=== PATIENT | female | born 1970 ===

== ENCOUNTER 2022-07-15 05:30 | Day surgery (SDC) | payer OTHER ==
[~2022-07-15] VITALS: Ht 152.4 cm; Wt 68.0 kg
[~2022-07-15 05:30] MED LIST: ZESTRIL10 M1 PO
== END 2022-07-15 14:00 | disposition home or self-care (01) ==
LOC: CIR.AMB 05:30
PROVIDERS: ATTEND Obstetrics & Gynecology
DX: N84.0 Polyp of corpus uteri (principal); Z20.822 Contact with and (suspected) exposure to COVID-19; Z88.8 Allergy status to other drugs, medicaments and biological substances; Z86.16 Personal history of COVID-19; E11.9 Type 2 diabetes mellitus without complications

== ENCOUNTER → 2024-12-13 | Day surgery (SDC) | payer OTHER ==
[2024-12-07 10:54] VITALS: BP 120/84
[~2024-12-13] VITALS: Ht 152.4 cm; Wt 72.6 kg
[~2024-12-13] MED LIST changes: +ENALAPRILAT DIHYDRATE 1.25 MG/ML VIAL IV ONE; +MEPERIDINE HCL 25 MG/ML AMPUL IV ONE; +ONDANSETRON HCL 2 MG/ML VIAL IV ONE; +POVIDONE-IODINE 118 ML BOTT TOP ONE; +ZESTRIL40 M1 PO
== END | disposition home or self-care (01) ==
LOC: ADM 12-07 10:00 → CIR.AMB 05:16
PROVIDERS: ATTEND Obstetrics & Gynecology
DX: N84.0 Polyp of corpus uteri (principal); N72 Inflammatory disease of cervix uteri; N95.0 Postmenopausal bleeding; I10 Essential (primary) hypertension; Z88.5 Allergy status to narcotic agent

== ENCOUNTER 2025-01-21 07:45 | Inpatient (IN) | payer OTHER ==
[~2025-01-21] VITALS: Ht 152.4 cm; Wt 71.2 kg
[~2025-01-21 07:45] MED LIST changes: -ENALAPRILAT DIHYDRATE 1.25 MG/ML VIAL IV ONE; -MEPERIDINE HCL 25 MG/ML AMPUL IV ONE; -ONDANSETRON HCL 2 MG/ML VIAL IV ONE; -POVIDONE-IODINE 118 ML BOTT TOP ONE
[2025-01-21 09:17] VITALS: BP 130/90
[2025-01-21 09:59] LABS: URINE APPEARANCE Clear; URINE BILIRRUBIN Negative (NEGATIVE); URINE BLOOD Moderate; URINE COLOR Yellow; URINE GLUCOSE Negative (NEGATIVE); URINE KETONE Negative (NEGATIVE); URINE LEUKOCYTE Negative; URINE NITRATE Negative; URINE PROTEIN Negative (NEGATIVE); URINE UROBILINOGEN 0.2 E.U./dl
[2025-01-21 10:02] LABS: INR 0.97; PARTIAL THROMBOPLASTIN TIME 30.3 SECONDS (22.0-34.0); PROTHROMBIN TIME 10.6 SECONDS (9.0-11.5)
[2025-01-21 10:04] LABS: URINE BACTERIA 385.5 uL (0.0-1933); URINE RBC 38.2 uL (0.0-20.8); URINE WBC 11.2 uL (0.0-23.2)
[2025-01-21 10:10] LABS: HEMATOCRIT 43.5 % (36.0-45.00); HEMOGLOBIN 14.4 g/dL (12.0-15.00); MEAN CELL VOLUME 92.9 fL (80.00-100.00); MEAN CORPUSCULAR HEMOGLOBIN 30.7 pg (27.00-32.0); MEAN CORPUSCULAR HGB CONC 33.1 g/dl (32.0-36.0); PLATELET COUNT 268 K/uL (150-450); RED BLOOD COUNT 4.68 M/uL (4.00-6.00)
[2025-01-21 10:17] LABS: ALBUMIN 3.9 gm/dL (3.4-5.0); BILIRUBIN TOTAL 0.19 mg/dL (0.3-1.2); CALCIUM 9.5 mg/dL (8.5-10.1); CREATININE SERUM 0.61 mg/dL (0.55-1.02); GFR 101.09; GLOBULINA 3.5 G/DL (2.4-3.5); POTASSIUM 4.85 mEq/L (3.5-5.1); TOTAL PROTEIN 7.4 gm/dL (6.4-8.2)
[2025-01-24] MEDS ORDERED: CEFAZOLIN SODIUM 1,000 MG VIAL ONE (08:33)
[2025-01-24] MEDS ORDERED: POVIDONE-IODINE 118 ML BOTT TOP ONE (09:14)
[2025-01-24] MEDS ORDERED: SUGAMMADEX SODIUM 200 MG/2 ML VIAL IV ONE (11:12)
[2025-01-24] MEDS ORDERED: MEPERIDINE HCL/PF 50 MG/ML VIAL IV SCH (12:00)
[2025-01-24] MEDS ORDERED: PROMETHAZINE HCL 25 MG/ML AMPUL IV SCH (12:00)
[2025-01-24 13:51] VITALS: BP 145/85; O2SAT 99
[2025-01-24] MEDS ORDERED: KETOROLAC TROMETHAMINE 60 MG VIAL IM PRN (14:53)
[2025-01-24] MEDS ORDERED: KETOROLAC TROMETHAMINE 60 MG VIAL IM ONE (15:32)
[2025-01-24 16:00] VITALS: BP 150/80
[2025-01-24 16:18] LABS: HEMOGLOBIN 13.6 g/dL (12.0-15.00); MEAN CELL VOLUME 90.9 fL (80.00-100.00); MEAN CORPUSCULAR HGB CONC 34.1 g/dl (32.0-36.0); PLATELET COUNT 239 K/uL (150-450); RED CELL DISTRIBUTION WIDTH 13.6 % (11.5-14.5)
[2025-01-24] MEDS ORDERED: FAMOTIDINE/PF 20 MG/2 ML VIAL IV SCH (21:00)
[2025-01-24] MEDS ORDERED: LISINOPRIL 40 MG TABLET PO ONE (23:45)
[2025-01-24 23:52] VITALS: BP 180/90
[2025-01-25] MEDS ORDERED: IBUprofen 800 MG TABLET PO SCH (02:00)
[2025-01-25 05:00] VITALS: BP 160/80
[2025-01-25] MEDS ORDERED: SIMETHICONE 125 MG CAPSULE PO SCH (05:00)
[2025-01-25] MEDS ORDERED: POLYETHYLENE GLYCOL 3350 17 GM BLIST.PACK PO SCH (05:00)
[2025-01-25] MEDS ORDERED: GABAPENTIN 300 MG CAPSULE PO SCH (05:00)
[2025-01-25] MEDS ORDERED: LISINOPRIL 40 MG TABLET PO SCH ×2 (12:00)
[2025-01-25 12:44] VITALS: BP 150/80
[2025-01-25 20:37] VITALS: BP 129/85
[2025-01-26 00:27] VITALS: BP 105/60
[2025-01-26 05:00] VITALS: BP 97/62
[2025-01-26] MEDS ORDERED: GABAPENTIN300 MG PO (06:33)
[2025-01-26] MEDS ORDERED: IBUPROFEN800 MG PO (06:34)
[2025-01-26] MEDS ORDERED: SIMETHICONE125 M1 PO (06:34)
[2025-01-26] MEDS ORDERED: POLY119PG PO (06:34)
[2025-01-26 08:00] VITALS: BP 125/80
== END 2025-01-26 10:54 | disposition home or self-care (01) | DRG 743 ==
LOC: OB/GYN 01-24 05:43 → O/R 01-24 05:43 → SURH 01-24 07:45 → OB/GYN 01-24 13:27 → SURH 01-24 15:00 → OB/GYN 01-24 18:25
PROVIDERS: ADMIT Obstetrics & Gynecology; ATTEND Obstetrics & Gynecology
PROC: 0UT70ZZ Resection of Bilateral Fallopian Tubes, Open Approach (ICD-10-PCS; 2025-01-24)
PROC: 0UT20ZZ Resection of Bilateral Ovaries, Open Approach (ICD-10-PCS; 2025-01-24)
PROC: 0DNW0ZZ Release Peritoneum, Open Approach (ICD-10-PCS; 2025-01-24)
PROC: 0UT90ZZ Resection of Uterus, Open Approach (ICD-10-PCS; principal; 2025-01-24 15:00)
DX: N80.03 Adenomyosis of the uterus (principal); D25.9 Leiomyoma of uterus, unspecified